=== PATIENT | female | born 1980 | race African-American/Black ===

== ENCOUNTER 2021-03-31 14:54 | Emergency (ER) | payer OTHER, SELFPAY ==
--- NOTE | ~2021-03-31 | US_ITS ---
EXAMINATION: US PELVIS, transabdominal. CLINICAL INFORMATION: Pelvic cramping pain. Right greater than left. Rule out torsion. COMPARISON: None TECHNIQUE: Ultrasound of the pelvis is performed using transabdominal technique. Doppler flow evaluation was performed. Patient refused transvaginal study. FINDINGS: Uterus: The uterus is anteverted and measures 7.5 x 4.6 x 4.7 cm. No cervical abnormalities appreciated. The double wall endometrial thickness is 10 mm. The uterus is smooth in contour and has normal myometrial echogenicity. No visible fibroid. Adnexa: Both ovaries are visualized. There is normal color flow to the adnexa. There is no ovarian torsion. There is no pelvic ascites or fluid collection. Right ovary measures 4.1 x 2.4 x 3.0 cm. Volume 15.5 mL. There is a 1.6 cm cyst present. Left ovary measures 2.3 x 1.5 x 1.1 cm. Volume of 2 mL. Follicular cysts are present. US/US pelvic complete IMPRESSION: No evidence of ovarian torsion with normal Doppler flow seen bilaterally. No suspicious pelvic mass. 1.6 cm right ovarian cyst..
--- NOTE | ~2021-03-31 | US_ITS ---
EXAMINATION: US PELVIS, transabdominal. CLINICAL INFORMATION: Pelvic cramping pain. Right greater than left. Rule out torsion. COMPARISON: None TECHNIQUE: Ultrasound of the pelvis is performed using transabdominal technique. Doppler flow evaluation was performed. Patient refused transvaginal study. FINDINGS: Uterus: The uterus is anteverted and measures 7.5 x 4.6 x 4.7 cm. No cervical abnormalities appreciated. The double wall endometrial thickness is 10 mm. The uterus is smooth in contour and has normal myometrial echogenicity. No visible fibroid. Adnexa: Both ovaries are visualized. There is normal color flow to the adnexa. There is no ovarian torsion. There is no pelvic ascites or fluid collection. Right ovary measures 4.1 x 2.4 x 3.0 cm. Volume 15.5 mL. There is a 1.6 cm cyst present. Left ovary measures 2.3 x 1.5 x 1.1 cm. Volume of 2 mL. Follicular cysts are present. US/US pelvic ovarian doppler IMPRESSION: No evidence of ovarian torsion with normal Doppler flow seen bilaterally. No suspicious pelvic mass. 1.6 cm right ovarian cyst..
[2021-03-31 14:56] VITALS: BP 97/59; PULSE 90; RESP 16; TEMP 36.7; O2SAT 98; BMI 24.2
--- NOTE | 2021-03-31 15:23 | ED.ABDPAIN ---
HPI - Abdominal Pain General Chief Complaint: Abdominal Pain Stated Complaint: Abdominal pain Time Seen by Provider: 03/31/21 15:04 Source: patient Mode of arrival: ambulatory Limitations: no limitations History of Present Illness HPI narrative: 40 y/o female presenting to the ER with lower abdominal cramping type pain that started 2 days ago and has been getting worse. She reports they feel like contractions and heaviness. She denies and reports her LMP was 03/17/21. She was seen at [facility] for abdominal pain 2 days ago, had a CT scan showing a [place]th[place] cyst. No I&D was performed and she was discharged with PO doxycycline, PO Naproxyn and OB follow up. 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 By the time she was done she had worsening cramping pains so she came to the ER for further evaluation. MD elicited complaint: abdominal pain Pertinent past history: none Onset (ago): day(s) Pain Consistency: intermittent Location: suprapubic and pelvis Severity: severe Quality: cramping Radiation: none Migration to: no migration Exacerbating factors: nothing Relieving factors: nothing Context: history of similar episodes Associated symptoms: denies other symptoms Related Data Date of Last Menstrual Period: 03/17/21 Patient : No Allergies Allergy/AdvReac Type Severity Reaction Status Date / Time Iodinated Contrast Media Allergy Rash Verified 03/31/21 15:03 [IV Contrast Dye] Review of Systems Constitutional: Denies chills and Denies fever(s) Eyes: Reports no additional eye complaints Reports Normal hearing present and Denies sore throat Cardiovascular: Denies chest pain Respiratory: Denies cough Gastrointestinal: Reports abdominal pain, Denies constipation, Reports GI cramping, Denies diarrhea, Denies nausea and Denies vomiting Genitourinary: Denies abnormal vaginal bleeding, Denies hematuria, Denies genital pruritis, Denies genital lesions, Denies dysuria, Reports pelvic pain, Denies flank pain, Denies urinary urgency, Denies vaginal discharge, Denies vaginal odor and Denies vaginal pruritus Musculoskeletal: Denies back pain and Denies myalgias Skin/Breast: Denies furuncle and Denies rash Reports Normal hearing present Psychiatric: Denies anxiety Physical Exam Vital Signs: Vital Signs: Last Vital Signs Temp 98.1 F 03/31/21 14:56 Pulse 90 03/31/21 14:56 Resp 16 03/31/21 14:56 BP 97/59 L 03/31/21 14:56 Pulse Ox 98 03/31/21 14:56 Body Mass Index 24.2 Const: General: cooperative, healthy appearing, comfortable, alert and awake Nutritional Appearance: average body habitus Orientation/consciousness: patient oriented x3 Limitations: no limitations HENMT: Head: Yes normal to inspection Ears: hearing grossly normal bilaterally and external ears normal General nose exam: Normal external nose present Face and sinus: Yes normal facial exam and Yes face symmetric Mouth: Normal oral and palatal mucosa present, lip normal and tongue normal Teeth and gingiva: dentition normal and gingiva normal Throat: Yes posterior oropharynx normal, Yes tonsils normal and Yes uvula midline Eyes: General: appearance normal, both eyes and all related structures Neck: Neck: Yes normal visual inspection Chest: Chest palpation & inspection: normal inspection of the chest Resp: Effort & Inspection: normal respiratory effort Auscultation: clear to auscultation bilaterally Cardio: Rate: regular rate Rhythm: regular rhythm Heart sounds: S1 normal heart sound present and S2 normal heart sound present GI: Inspection: Yes normal to inspection Palpation (GI): Soft to palpation, not firm and Tenderness to palpation present (GI) suprapubicly Percussion: Yes normal to percussion Auscultation: normal bowel sounds Rectal Exam - Female: deferred : External Female Exam: normal external appearance, normal appearance of the urethra, No erythema, No externally tender, No external swelling and No lesion Skin: General skin exam: no rashes or lesions noted Neuro: General: patient oriented x3 Cranial nerves: Yes Normal hearing present Course Course Course Narrative: 40 y/o female presenting with lower abdominal/pelvic cramping and contraction type pain that has been on/off for the last 2 days. Dx batholin's cyst a few days ago, not appreciated on exam at this time. Will get pelvic U/S to r/o ovarian torsion. PO tylenol ordered. She appears comfortable. Will also check UA and Upreg. Reevaluation(s) Reevaluation #1: UA and Upreg are negative. U/S shows a small 1.6cm ovarian cyst on the right, which is consistent with her exam and presentation. She is stable for discharge home with supportive care and outpatient follow up. MDM - Abdominal Pain Medical Records Attestation: I reviewed the patient's medical records. Lab Data Attestation: I reviewed the patient's lab results. Labs: Lab Results 03/31/21 03/31/21 Range/Units 15:15 15:15 Urine Color YELLOW Urine Appearance HAZY Urine pH 5.5 (5.0-8.0) Ur Specific [place] 1.025 (1.005-1.025) Urine Protein TRACE (NEG-TRACE) MG/DL Urine Glucose (UA) NEG (NEG) MG/DL Urine Ketones NEG (NEG) MG/DL Urine Blood NEG (NEG) Urine Nitrite NEG (NEG) Ur Leukocyte Esterase TRACE H (NEG) Urine RBC 0-2 (0) /HPF Urine WBC 1-4 (0-4) /HPF Ur Squamous Epith Cells 1+ /LPF Uric Acid Crystals 1+ /LPF Urine Bacteria TRACE /LPF Hyaline Casts 5-9 /LPF Urine Test NEGATIVE (NEGATIVE) Critical Care Time Critical Care Time Critical Care Time: No Discharge Plan Discharge Clinical Impression: Ovarian cyst Qualifiers: Laterality: right Qualified Code(s): N83.201 - Unspecified ovarian cyst, right side Patient Disposition: Home, Self-Care Instructions: Ovarian Cyst (ED) Additional Instructions: Your ultrasound today showed a small right sided ovarian cyst. No intervention or treatment is required at this time. Take Tylenol and/or Motrin as needed for pain. Use heating pad as needed for cramping. Rest and stay hydrated. Follow up with your [employer], they may want to repeat the ultrasound in the future to monitor the cyst. Stand Alone Forms: Work/School Release [facility] Past Medical History Attestation statement: The following information was validated with the patient. Medical History (Updated 03/31/21 @ 16:36 by JOSEPH Parish) Ovarian cyst Date of Last Menstrual Period: 03/17/21 Social History Social History Advance Directives: No Advance Directives Information Provided: No Patient : No
[2021-03-31 15:25] LABS: Glucose Urine UA NEG (NEG); Leukocyte Esterase Urine TRACE (NEG); Nitrite Urine NEG (NEG); PH 5.5 (5.0-8.0); Specific Gravity - Urine 1.025 (1.005-1.025); UACC Culture Trigger YES; Urine Blood NEG (NEG); Urine Ketones NEG (NEG); Urine Protein TRACE MG/DL (NEG-TRACE)
[2021-03-31 15:28] LABS: Appearance Urine HAZY; Color Urine YELLOW; UPreg QC Valid YES; Urine Pregnancy NEGATIVE (NEGATIVE)
[2021-03-31 15:44] LABS: Bacteria Urine TRACE /LPF; RBC Urine 0-2 /HPF (0); Squamous Epithelial Cell Urine 1+ /LPF; Uric Acid Crystals Urine 1+ /LPF
[2021-03-31] MEDS: Acetaminophen 325 MG TABLET 975 MG PO (16:09)
[2021-03-31 16:50] LABS: COVID-19 Test Negative (Negative)
== END 2021-03-31 17:12 | disposition home or self-care (01) ==
PROVIDERS: Physician Assistant; Emergency Provider Emergency Medicine
DX: N83.201 Unspecified ovarian cyst, right side (principal); Z20.822 Contact with and (suspected) exposure to COVID-19; R10.30 Lower abdominal pain, unspecified
CPT/HCPCS: 36415; 76856; 81001; 81025; 87086; 87635; 93975; 99284; 99285